=== PATIENT | male | born 1950 | race Two or more races ===

== ENCOUNTER → 2017-08-09 | Outpatient (CLI) | payer MEDICARE, OTHER ==
--- NOTE | 2017-08-09 10:08 | RADIOLOGY REPORT (SQ) ---
EXAM DESCRIPTION: CT ABD/PELVIS NO ORAL OR IV COMPLETED DATE/TIME: 08/09/2017 7:39 am REASON FOR STUDY: HEMATURIA (R31.9) R31.9 HEMATURIA, UNSPECIFIED COMPARISON: None. TECHNIQUE: CT scan of the abdomen and pelvis performed without intravenous or oral contrast. Images reviewed with lung, soft tissue, and bone windows. Reconstructed coronal and sagittal MPR images revi ewed. All images stored on PACS. All CT scanners at this facility use dose modulation, iterative reconstruction, and/or weight based d osing when appropriate to reduce radiation dose to as low as reasonably achievable (ALARA). [facility]: Dose Right [facility]: CareDose [facility]: Dose Right [facility]: Teradose 4D [facility]: [employer] RADIATION DOSE: Up-to-date CT equipment and radiation dose reduction techniques were employed. CTDIv ol: 14.8 mGy. DLP: 795 mGy-cm.mGy. LIMITATIONS: None. FINDINGS: On the right side, a 1.6 cm stone is present in the right renal pelvis, [address] its in density. Although there is no right hydronephrosis or hydroureter, there is inflammation at t he right renal pelvis fat, and intermittent right urinary outflow obstruction from this stone may be present. These changes are best shown on coronal images 59-68, and axial images 29-37. Elsewhere in the right kidney, a less than 2 mm calculus is present in the upper pole. No cysts or m asses. No right ureteral stones. LOWER CHEST: No significant findings. No nodules or infiltrates. NON-CONTRASTED LIVER, SPLEEN, ADRENALS: Evaluation limited by lack of IV contrast. No identified sign ificant masses. PANCREAS: No masses. No peripancreatic inflammatory changes. GALLBLADDER: No identified stones by CT criteria. No inflammatory changes to suggest cholecystitis. RIGHT KIDNEY AND URETER: As above LEFT KIDNEY AND URETER: No suspicious masses. 7 mm left lower pole hemorrhagic cyst. 4 mm left low er pole intrarenal nonobstructive stone. No hydronephrosis or hydroureter. AORTA AND RETROPERITONEUM: No aneurysm. No retroperitoneal masses or adenopathy. BOWEL AND PERITONEAL CAVITY: No obvious masses or inflammatory changes. No free fluid. Scattered col onic diverticuli without CT signs of acute diverticulitis. APPENDIX: Normal. PELVIS, BLADDER, AND ABDOMINAL WALL:No abnormal masses. No free fluid. Bladder normal. BONES: No significant findings. OTHER: No other significant finding. IMPRESSION: 1.6 cm right renal pelvis stone, with reactive or inflammatory stranding in the fat at t he right renal hilum. No right-sided hydronephrosis. COMMENT: Quality ID # [id number]: Final reports with documentation of one or more dose reduction techniques (e.g., Automated exposure control, adjustment of the mA and/or kV according to patient size, use of iterative reconstruction technique) TECHNICAL DOCUMENTATION: JOB ID: [id number] [employer]- All Rights Reserved
== END ==
LOC: RAD 07:00
PROVIDERS: ATTEND Family Medicine
DX: N20.0 Calculus of kidney (principal); R31.9 Hematuria, unspecified
CPT/HCPCS: 74176

== ENCOUNTER → 2017-10-15 | Outpatient (CLI) | payer MEDICARE, OTHER ==
--- NOTE | 2017-10-16 09:40 | RADIOLOGY REPORT (SQ) ---
EXAM DESCRIPTION: CT ABD/PELVIS NO ORAL OR IV COMPLETED DATE/TIME: 10/15/2017 3:44 pm REASON FOR STUDY: KIDNEY STONE N20.0 CALCULUS OF KIDNEY COMPARISON: 08/09/2017. TECHNIQUE: CT scan of the abdomen and pelvis performed without intravenous or oral contrast. Images reviewed with lung, soft tissue, and bone windows. Reconstructed coronal and sagittal MPR images revi ewed. All images stored on PACS. All CT scanners at this facility use dose modulation, iterative reconstruction, and/or weight based d osing when appropriate to reduce radiation dose to as low as reasonably achievable (ALARA). [facility]: Dose Right [facility]: CareDose [facility]: Dose Right [facility]: Teradose 4D [facility]: Smart [employer] RADIATION DOSE: Up-to-date CT equipment and radiation dose reduction techniques were employed. CTDIv ol: 13.2 mGy. DLP: 703 mGy-cm.mGy. LIMITATIONS: None. FINDINGS: LOWER CHEST: Small right hydropneumothorax. Potentially related to recent retroperitoneal instrumentation. NON-CONTRASTED LIVER, SPLEEN, ADRENALS: Evaluation limited by lack of IV contrast. No identified sign ificant masses. PANCREAS: No masses. No peripancreatic inflammatory changes. GALLBLADDER: No identified stones by CT criteria. No inflammatory changes to suggest cholecystitis. RIGHT KIDNEY AND URETER: Percutaneous nephrostomy in place. This skirts the medial aspect of the martín al parenchyma with direct entry into the dilated renal pelvis. Distal tip lies in the distal ureter. Moderate hydronephrosis with distension of the urinary pelvis, regional fat stranding. This is sli ghtly progressive compared to August. Large stone in the renal pelvis measures 1.2 cm with Hounsf [place] units greater than 1,100. At least 1 other tiny punctate upper pole calculus. No stones in the ureter, which is mildly dilated diffusely. LEFT KIDNEY AND URETER: Punctate nonobstructive nephrolithiasis. AORTA AND RETROPERITONEUM: No evidence of aortic aneurysm or retroperitoneal mass/ adenopathy. BOWEL AND PERITONEAL CAVITY: No obvious masses or inflammatory changes. No free fluid. APPENDIX: Normal. PELVIS, BLADDER, AND ABDOMINAL WALL:No abnormal masses. No free fluid. Bladder normal. BONES: No significant findings. OTHER: No other significant finding. IMPRESSION: 1. Large chronic stone in the right renal pelvis once again demonstrated. Instrumentat ion of the right kidney now in place. Slightly progressive hydronephrosis noted compared to prior. The right ureter is also diffusely dilated but without stones. 2. Nonobstructive left nephrolithiasi s. 3. Chest findings as above. There is a small hydropneumothorax. Follow-up chest radiographs to assess size and extent recommended. Findings discussed with Dr. Barrios on the morning of review, 10/16/2017. TECHNICAL DOCUMENTATION: JOB ID: [id number] Quality ID # [id number]: Final reports with documentation of one or more dose reduction techniques (e.g., Au tomated exposure control, adjustment of the mA and/or kV according to patient size, use of iterative reconstruction technique) 2010 [employer]- All Rights Reserved
== END ==
LOC: RAD 15:00
PROVIDERS: ATTEND Urology
DX: N20.0 Calculus of kidney (principal)
CPT/HCPCS: 74176

== ENCOUNTER → 2017-10-17 | Outpatient (CLI) | payer MEDICARE, OTHER ==
--- NOTE | 2017-10-17 10:46 | RADIOLOGY REPORT (SQ) ---
EXAM DESCRIPTION: CHEST PA/LAT COMPLETED DATE/TIME: 10/17/2017 10:35 am REASON FOR STUDY: PLEURAL EFFUSION (J90) COMPARISON: None. EXAM PARAMETERS: NUMBER OF VIEWS: two views TECHNIQUE: Digital Frontal and Lateral radiographic views of the chest acquired. RADIATION DOSE: NA LIMITATIONS: none FINDINGS: LUNGS AND PLEURA: No opacities, masses or pneumothorax. No pleural effusion. MEDIASTINUM AND HILAR STRUCTURES: No masses or contour abnormalities. HEART AND VASCULAR STRUCTURES: Heart size borderline. No failure. BONES: No acute findings. HARDWARE: None in the chest. OTHER: No other significant finding. IMPRESSION: Borderline cardiomegaly. No failure. No pleural effusion. TECHNICAL DOCUMENTATION: JOB ID: [id number] [employer]- All Rights Reserved
== END ==
LOC: RAD 09:57
PROVIDERS: ATTEND Urology
DX: J90 Pleural effusion, not elsewhere classified (principal)
CPT/HCPCS: 71020

== ENCOUNTER 2017-11-16 12:52 | Emergency (ER) | payer MEDICARE, OTHER ==
[2017-11-16 13:02] VITALS: BP 150/85
--- NOTE | 2017-11-16 13:26 | ER Document Report ---
ED General - General Chief Complaint: Other Stated Complaint: WOUND CHECK Time Seen by Provider: 11/16/17 13:16 Mode of Arrival: Ambulatory Notes: This 67-year-old male patient had a right nephrostomy tube placed possibly months ago or so. He then had a transurethral approach for an obstructing kidney stone. He reports the bag was removed from the stent just over 3 weeks ago. He has a follow-up appointment with his urologist in 2 days. He reports that the outer sheath of the catheter with the Luer-Constance tip fell off during the night. He brought that catheter with him. There is an inner catheter that remains percutaneous and sutured to the skin. The end of the catheter is unprotected and does not have any tip affixed to it. His urologist will be contacted to see if anything should be done other than a sterile dressing at this time. TRAVEL OUTSIDE OF THE [place] IN LAST 30 DAYS: No - Related Data Allergies/Adverse Reactions: No Known Allergies Allergy (Verified 11/16/17 12:55) Home Medications: Current Home Medications Clopidogrel Bisulfate [Clopidogrel] 75 mg PO DAILY 11/16/17 [History] Metoprolol Tartrate [Metoprolol Tartrate] 100 mg PO DAILY 11/16/17 [History] Telmisartan [Micardis] 20 mg PO DAILY 11/16/17 [History] Past Medical History - General Information source: Patient - Social History Smoking Status: Current Some Day Smoker Cigarette use (# per day): Yes Chew tobacco use (# tins/day): No Smoking Education Provided: No Frequency of alcohol use: None Drug Abuse: None Lives with: Spouse/Significant other Family History: Reviewed & Not Pertinent Patient has suicidal ideation: No Patient has homicidal ideation: No - Past Medical History Cardiac Medical History: Reports: Hx Hypertension Pulmonary Medical History: Reports: None EENT Medical History: Reports: None Neurological Medical History: Reports: None Endocrine Medical History: Reports: None Renal/ Medical History: Reports: Hx Kidney Stones GI Medical History: Reports: None Musculoskeltal Medical History: Reports None Skin Medical History: Reports None Psychiatric Medical History: Reports: None Past Surgical History: Reports: Hx Kidney (Renal Surgery) - Urostomy tube Review of Systems - Review of Systems Constitutional: No symptoms reported EENT: No symptoms reported Cardiovascular: No symptoms reported Respiratory: No symptoms reported Gastrointestinal: No symptoms reported Genitourinary: See HPI Musculoskeletal: No symptoms reported Skin: No symptoms reported Hematologic/Lymphatic: No symptoms reported Neurological/Psychological: No symptoms reported Physical Exam - Vital signs Vitals: Temp Pulse Resp BP Pulse Ox 97.9 F 87 20 150/85 H 100 11/16/17 13:01 11/16/17 13:01 11/16/17 13:01 11/16/17 13:01 11/16/17 13:01 Interpretation: Normal - General General appearance: Appears well, Alert In distress: None - HEENT Head: Normocephalic, Atraumatic Eyes: Normal Pupils: PERRL - Respiratory Respiratory status: No respiratory distress - Cardiovascular Rhythm: Regular - Abdominal Inspection: Normal - Back Back: Other - There is an orange colored nephrostomy tube exiting the right posterior flank which is sutured to the skin. The end of that tube is cut with no fitting. It appears this was an inner cannula to the blue nephrostomy tube the patient has with him in the plastic bag. - Extremities General upper extremity: Normal inspection General lower extremity: Normal inspection - Neurological Neuro grossly intact: Yes - Psychological Associated symptoms: Normal affect, Normal mood - Skin Skin Temperature: Warm Skin Moisture: Dry Skin Color: Normal Course - Vital Signs Vital signs: Temp Pulse Resp BP Pulse Ox 97.9 F 87 20 150/85 H 100 11/16/17 13:01 11/16/17 13:01 11/16/17 13:01 11/16/17 13:01 11/16/17 13:01 - Diagnostic Test Radiology reviewed: Image reviewed, Reports reviewed - The KUB shows a nephrostomy tube going into the renal pelvis and then down the ureter almost to the bladder on the right side - Consults Dr. Sinclair Time consulted: 13:50 Consulted provider: other - Place a sterile dressing over the tube. Get a KUB for tube placement. Have patient bring a CD to his office appointment with Dr. Barrios on Saturday. Discharge - Discharge Clinical Impression: Nephrostomy tube displaced Condition: Stable Disposition: HOME, SELF-CARE Additional Instructions: Keep the dressing on your back clean and intact. Take the CD of your x-ray today with you to your follow-up appointment with Dr. Barrios on Saturday. Call your urologist if any problems. RETURN TO THE EMERGENCY ROOM IF ANY NEW OR WORSENING SYMPTOMS.
--- NOTE | 2017-11-16 15:10 | RADIOLOGY REPORT (SQ) ---
EXAM DESCRIPTION: KUB/ABDOMEN (SINGLE VIEW) COMPLETED DATE/TIME: 11/16/2017 2:50 pm REASON FOR STUDY: right nephrostomy tube placement COMPARISON: CT abdomen 10/15/2017. NUMBER OF VIEWS: One view. TECHNIQUE: Supine radiographic image of the abdomen acquired. LIMITATIONS: None. FINDINGS: BOWEL GAS PATTERN: Normal bowel gas pattern. No dilated loops. CALCIFICATIONS: Known calcification measuring 1.6 cm in the right renal pelvis. SOFT TISSUES: No gross mass or suggestion of organomegaly. HARDWARE: There is a nephrostomy tube in place which traverses the collecting system and majority of the ureter. Tip terminates in the pelvis. CT shows this to lie in the distal ureter. The proximal portion appears to lie external to the patient over the right lower flank. BONES: No acute fracture. No worrisome bone lesions. OTHER: No other significant finding. IMPRESSION: Nephro ureterostomy tube in place on the right, position within the patient looks grossl y unchanged when correlated to CT from last month. Known large right renal pelvic stone. TECHNICAL DOCUMENTATION: JOB ID: [id number]- All Rights Reserved
== END 2017-11-16 15:11 | disposition home or self-care (01) ==
LOC: ER 12:52
DX: N99.528 Other complication of incontinent external stoma of urinary tract (principal); Y83.8 Other surgical procedures as the cause of abnormal reaction of the patient, or of later complication, without mention of misadventure at the time of the procedure; Y73.8 Miscellaneous gastroenterology and urology devices associated with adverse incidents, not elsewhere classified; Z87.442 Personal history of urinary calculi; F17.210 Nicotine dependence, cigarettes, uncomplicated; I10 Essential (primary) hypertension
CPT/HCPCS: 74000; 99283

== ENCOUNTER 2018-06-08 08:30 | Emergency (ER) | payer MEDICARE, OTHER ==
[2018-06-08 08:35] VITALS: BP 145/102
--- NOTE | 2018-06-08 08:51 | ER Document Report ---
ED General - General Chief Complaint: Foreign Body in Ear Stated Complaint: FOREIGN OBJECT IN RIGHT EAR/QTIP Time Seen by Provider: 06/08/18 08:51 Mode of Arrival: Ambulatory Information source: Patient TRAVEL OUTSIDE OF THE [place] IN LAST 30 DAYS: No - HPI Notes: 67-year-old male presents to the ED with complaints of foreign body to his right ear with a Q-tip that happened this morning. Denies any ringing ear, hearing loss, fevers or chills. Has not attempted to get Q-tip out of the ear. Denies any drainage from the ear. Denies any pain. Denies any other complaints at this time. - Related Data Allergies/Adverse Reactions: No Known Allergies Allergy (Verified 06/08/18 08:31) Past Medical History - General Information source: Patient - Social History Smoking Status: Unknown if Ever Smoked Family History: Reviewed & Not Pertinent - Past Medical History Cardiac Medical History: Reports: Hx Hypertension Renal/ Medical History: Reports: Hx Kidney Stones. Denies: Hx Peritoneal Dialysis Past Surgical History: Reports: Hx Kidney (Renal Surgery) - Urostomy tube Review of Systems - Review of Systems Constitutional: No symptoms reported EENT: See HPI Cardiovascular: No symptoms reported Respiratory: No symptoms reported Gastrointestinal: No symptoms reported Genitourinary: No symptoms reported Male Genitourinary: No symptoms reported Musculoskeletal: No symptoms reported Skin: No symptoms reported Hematologic/Lymphatic: No symptoms reported Neurological/Psychological: No symptoms reported Physical Exam - Vital signs Vitals: Temp Pulse Resp BP Pulse Ox 97.7 F 71 16 145/102 H 97 06/08/18 08:34 06/08/18 08:34 06/08/18 08:34 06/08/18 08:34 06/08/18 08:34 - Notes Notes: PHYSICAL EXAMINATION: GENERAL: Well-appearing, well-nourished and in no acute distress. HEAD: Atraumatic, normocephalic. EYES: Pupils equal round and reactive to light, extraocular movements intact, sclera anicteric, conjunctiva are normal. ENT: Nares patent, oropharynx clear without exudates. Moist mucous membranes. Right external canal with tip of Q-tip, no open wounds or drainage. Tympanic membrane appears intact. After ears were flushed, Q-tip came out, TM remains intact, no erythema or bulging. Scant erythema to the external canal and right. Left TM and EAC normal. NECK: Normal range of motion, supple without lymphadenopathy LUNGS: Breath sounds clear to auscultation bilaterally and equal. No wheezes rales or rhonchi. HEART: Regular rate and rhythm without murmurs ABDOMEN: Soft, nontender, nondistended abdomen. No guarding, no rebound. No masses appreciated. Musculoskeletal: Normal range of motion, no pitting or edema. No cyanosis. NEUROLOGICAL: Cranial nerves grossly intact. Normal speech, normal gait. Normal sensory, motor exams PSYCH: Normal mood, normal affect. SKIN: Warm, Dry, normal turgor, no rashes or lesions noted. Course - Re-evaluation Re-evalutation: 06/08/18 09:28 Healthy 67-year-old male is afebrile, vitals stable and in no distress presents for foreign body removal to right ear. Foreign body was removed after flushing. Will put place patient on antibiotic drops to prevent infection. Advised take ibuprofen and Tylenol as needed for pain. After performing a Medical Screening Examination, I estimate there is LOW risk for malignant otitis media, mastoiditis, MENINGITIS, or ACUTE CORONARY SYNDROME, thus I consider the discharge disposition reasonable. I have reevaluated this patient multiple times and no significant life threatening changes are noted. The patient and I have discussed the diagnosis and risks, and we agree with discharging home to follow-up on an outpatient basis with the understanding that symptoms and presentations can change. We also discussed returning to the Emergency Department immediately if new or worsening symptoms occur. We have discussed the symptoms which are most concerning (e.g., high fevers, confusion) that necessitate immediate return. - Vital Signs Vital signs: Temp Pulse Resp BP Pulse Ox 97.7 F 71 16 145/102 H 97 06/08/18 08:34 06/08/18 08:34 06/08/18 08:34 06/08/18 08:34 06/08/18 08:34 Discharge - Discharge Clinical Impression: Foreign body in ear Qualifiers: Encounter type: initial encounter Right otitis externa Qualifiers: Chronicity: acute Condition: Stable Disposition: HOME, SELF-CARE Instructions: Otitis Externa ([facility]), Use of Ear Drops ([facility]), Foreign Body ([facility]) Additional Instructions: Use eardrops as directed. Take otc antipyretics as needed for any pain or fever. Follow-up with your PCP as needed. Return if becomes lethargic, has persistent vomiting, facial swelling, worsening pain despite antibiotics, or any other symptoms that are concerning to you, return to ER immediately. Return immediately for any new or worsening symptoms. Follow up with primary care provider, call tomorrow to make followup appointment. Prescriptions: Ciprofloxacin HCl/Dexameth [Ciprodex Otic Suspension 7.5 ml Bottle] 4 drop OT BID #1 bottle Forms: Parent Work Note Referrals: HERNÁN TORRES MD [NO LOCAL MD] - Follow up as needed
== END 2018-06-08 09:25 | disposition home or self-care (01) ==
LOC: ER 08:30
DX: T16.1XXA Foreign body in right ear, initial encounter (principal); H60.91 Unspecified otitis externa, right ear; X58.XXXA Exposure to other specified factors, initial encounter; Y93.E8 Activity, other personal hygiene; I10 Essential (primary) hypertension; Z87.442 Personal history of urinary calculi
CPT/HCPCS: 99282

== ENCOUNTER 2018-08-30 00:33 | Emergency (ER) | payer MEDICARE, OTHER ==
[2018-08-30 00:49] VITALS: BP 151/97
--- NOTE | 2018-08-30 02:07 | RADIOLOGY REPORT (SQ) ---
EXAM DESCRIPTION: CT HEAD WITHOUT IV CONTRAST COMPLETED DATE/TME: 08/30/2018 01:37 CLINICAL HISTORY: 68 years Male, head trauma COMPARISON: None. TECHNIQUE: No contrast. Coronal and sagittal reformat. This exam was performed according to our departmental dose-optimization program, which includes automated exposure control, adjustment of the mA and/or kV according to patient size and/or use of iterative reconstruction technique. FINDINGS: No hemorrhage or infarct. No mass, mass effect, or midline shift. Moderate left frontal scalp swelling. Brain and extra-axial structures appear otherwise intact. IMPRESSION: Scalp swelling/injury. Else, no acute intracranial findings.
--- NOTE | 2018-08-30 02:08 | RADIOLOGY REPORT (SQ) ---
EXAM DESCRIPTION: CT MAXILLOFACIAL WITHOUT IV CONTRAST COMPLETED DATE/TME: 08/30/2018 01:37 CLINICAL HISTORY: 68 years Male, fall, trauma Comparison: None. Technique: No contrast. Coronal and sagittal reformat. This exam was performed according to our departmental dose-optimization program, which includes automated exposure control, adjustment of the mA and/or kV according to patient size and/or use of iterative reconstruction technique.[facility]: Dose Right [facility]: CareDose [facility]: Dose Right [facility]: Teradose 4D [facility]: [employer] LIMITATIONS: None Findings: Moderate left frontal scalp swelling. Facial bones including orbits, nasal bone, paranasal sinuses, and pterygoid plates appear otherwise intact. Unremarkable partially visualized inferior cranium, temporal bone, and upper neck. IMPRESSION: Moderate scalp swelling.
[2018-08-30] MEDS ORDERED: LIDOCAINE 1%/EPINEPHRINE INJ 20 ML VIAL INJ ONE (02:19)
[2018-08-30] MEDS ORDERED: DIPH/PERTUSS(ACELL)/TETANUS VAC/PF 0.5 ML SYR (>=10YO) IM ONE (03:04)
--- NOTE | 2018-08-30 03:07 | ER Document Report ---
ED General - General Chief Complaint: Nose Bleed Stated Complaint: FALL/NOSE BLEED Time Seen by Provider: 08/30/18 01:37 Notes: Patient is a 68-year-old male currently on Plavix and aspirin who presents after having a mechanical fall striking his head. The patient denies loss of consciousness, weakness, numbness, confusion or vomiting since that time. He notes that he initially had a small amount of bleeding from his left nostril which has now spontaneously stopped. He notes a dull, throbbing, constant pain to his left forehead. Nothing improves or worsens that pain. He states that there is a laceration to the affected area and that the bleeding is been controlled by direct pressure. No history of similar injuries in the past. He denies any additional injuries to any other area of his body. He has not contacted his primary care doctor regarding today's concerns. TRAVEL OUTSIDE OF THE [place] IN LAST 30 DAYS: No - Related Data Allergies/Adverse Reactions: No Known Allergies Allergy (Verified 06/08/18 08:31) Past Medical History - General Information source: Patient - Social History Smoking Status: Never Smoker Frequency of alcohol use: None Drug Abuse: None Lives with: Family Family History: Reviewed & Not Pertinent - Past Medical History Cardiac Medical History: Reports: Hx Hypertension Renal/ Medical History: Reports: Hx Kidney Stones. Denies: Hx Peritoneal Dialysis Past Surgical History: Reports: Hx Kidney (Renal Surgery) - Urostomy tube Review of Systems - Review of Systems Notes: Constitutional: Negative for fever. Eyes: Negative for visual changes. ENT: Negative for facial injury Cardiovascular: Negative for chest injury. Respiratory: Negative for shortness of breath. Gastrointestinal: Negative for abdominal injury. Genitourinary: Negative for genital injury Musculoskeletal: Negative for back injury. Skin: Positive for laceration/abrasions. Neurological: Positive for head injury. Physical Exam - Vital signs Vitals: Temp Pulse Resp BP Pulse Ox 97.6 F 98 22 H 151/97 H 96 08/30/18 00:47 08/30/18 00:47 08/30/18 00:47 08/30/18 00:47 08/30/18 00:47 Interpretation: Hypertensive Notes: PHYSICAL EXAMINATION: GENERAL: Well-appearing, no acute distress. HEAD: Atraumatic, normocephalic. EYES: Pupils equal round and reactive to light, extraocular movements intact, sclera anicteric, conjunctiva are normal. ENT: nares patent, no oral pharyngeal trauma. No hemotympanum, no Chicas's sign , no raccoon eyes. NECK: No midline cervical spine tenderness. Patient able to move their head to 45 bilaterally without any discomfort. LUNGS: Breath sounds clear to auscultation bilaterally and equal. No wheezes rales or rhonchi. HEART: Regular rate and rhythm without murmurs. CHEST WALL: No ecchymosis over the chest wall. ABDOMEN: Soft, nontender, normoactive bowel sounds. No guarding, no rebound. No abdominal bruising EXTREMITIES: Normal range of motion, no pitting or edema. No long bone deformities. BACK: No midline spinal tenderness, step-offs, or deformities. NEUROLOGICAL: Face symmetric. Tongue protrudes midline. Extraocular motions intact. Pupils are 2 mm and equally reactive. Normal speech, normal gait. 5 out of 5 strength in both the distal and proximal upper and lower extremities bilaterally. Sensation is grossly intact throughout. Finger to nose testing normal. Pronator drift normal. PSYCH: Normal mood, normal affect. SKIN: Warm, Dry, normal turgor, 3 cm laceration of the left forehead just above the level of the eyebrow Course - Re-evaluation Re-evalutation: 08/30/18 03:03 Patient presents presentation of head trauma in an otherwise well-appearing patient. No focal neurologic deficits on exam, no evidence of basilar skull fracture on exam without evidence of hemotympanum, raccoon eyes, or periauricular hematoma. No papilledema. GCS is 15. No loss of consciousness. No episodes of vomiting. Unfortunately, the patient is anticoagulated on Plavix and is above [address] of the head was therefore obtained and does not show any evidence of acute intracranial injury or skull fracture. CT of the face was also obtained given prominent swelling above the patient's left eye and this likewise was noted to be unremarkable. Patient has full extraocular motions of the left eye, no proptosis or evidence of entrapment. No additional injuries noted on exam or by history. Laceration was repaired without difficulty. Tetanus has been updated. At this time will discharge with return precautions and follow-up recommendations. Verbal discharge instructions given a the bedside and opportunity for questions given. Medication warnings reviewed. Patient is in agreement with this plan and has verbalized understanding of return precautions and the need for primary care follow-up in the next 24-72 hours. - Vital Signs Vital signs: Temp Pulse Resp BP Pulse Ox 97.6 F 98 22 H 151/97 H 96 08/30/18 00:47 08/30/18 00:47 08/30/18 00:47 08/30/18 00:47 08/30/18 00:47 - Diagnostic Test Radiology reviewed: Image reviewed, Reports reviewed Radiology results interpreted by me: 08/30/18 03:05 CT head: No acute intracranial bleed or mass Procedures - Laceration/Wound Repair Left forehead Wound length (cm): 3 Wound's Depth, Shape: Superficial Laceration pre-procedure: Sterile PPE donned Anesthetic type: 1% Lidocaine w/epi Volume Anesthetic (mLs): 2 Wound explored: Clean Irrigated w/ Saline (mLs): 500 Wound Debrided: Minimal Wound Repaired With: Sutures Suture Size/Type: Prolene Number of Sutures: 5 Layer Closure?: No Post-procedure wound care: Sterile dressing applied Post-procedure NV exam normal: Yes Discharge - Discharge Clinical Impression: Head trauma Qualifiers: Encounter type: initial encounter Qualified Code(s): S09.90XA - Unspecified injury of head, initial encounter Forehead laceration Qualifiers: Encounter type: initial encounter Qualified Code(s): S01.81XA - Laceration without foreign body of other part of head, initial encounter Fall Qualifiers: Encounter type: initial encounter Qualified Code(s): W19.XXXA - Unspecified fall, initial encounter Condition: Good Disposition: HOME, SELF-CARE Additional Instructions: You have likely sustained a contusion (bruise) to your head. The CT scan of your head and face do not show any acute injuries other than bruising to your forehead. Symptoms to expect from a concussion include nausea, mild to moderate headache, difficulty concentrating or sleeping, and mild lightheadedness. These symptoms should improve over the next few days to weeks. Return to the emergency department or follow-up with your primary care doctor if your symptoms are not improving over this time. Signs of a more serious head injury include vomiting, severe headache, excessive sleepiness or confusion, and weakness or numbness in your face, arms or legs. Return immediately to the Emergency Department if you experience any of these more concerning symptoms. Rest, avoid strenuous physical or mental activity, and avoid activities that could potentially result in another head injury until all your symptoms from this head injury are completely resolved for at least 2-3 weeks. If you participate in sports, get cleared by your doctor or corporate sales trainer before returning to play. You may take ibuprofen or acetaminophen over the counter according to label instructions for mild headache or scalp soreness. Please return to your primary doctor, the ED, or an urgent care in 7 days for suture removal. Return immediately if you develop spreading redness around the wound, pus from the wound, worsening pain, or a fever of >100.4. Keep the area clean and dry. Wash gently with soap and water twice daily and cover with antibiotic ointment. Referrals: KELI COLEMAN MD [Primary Care Provider] - Follow up as needed
== END 2018-08-30 03:22 | disposition home or self-care (01) ==
LOC: ER 00:33
DX: S01.81XA Laceration without foreign body of other part of head, initial encounter (principal); R51 Headache; W01.198A Fall on same level from slipping, tripping and stumbling with subsequent striking against other object, initial encounter; Z79.02 Long term (current) use of antithrombotics/antiplatelets; Z79.82 Long term (current) use of aspirin; I10 Essential (primary) hypertension; Z23 Encounter for immunization
CPT/HCPCS: 70450; 70486; 90471; 90715; 99284

== ENCOUNTER → 2018-11-10 | Outpatient (CLI) | payer MEDICARE, OTHER ==
--- NOTE | 2018-11-11 11:50 | XCELERA REPORT ---
[address] [facility] [address] Lower Extremity Venous Evaluation Procedure: Color flow and duplex imaging bilaterally of the veins of the lower extremities as well as the Common Femoral veins. Right Sided Venous Evaluation Normal vessel filling wall to wall, compression and augmentation as well as Colour flow down to the infrageniculate veins. Left Sided Venous Evaluation Normal vessel filling wall to wall, compression and augmentation as well as Colour flow down to the infrageniculate veins. Interpretation Summary No duplex evidence of DVT or obstruction in the bilateral lower extremities. Name: ALINA HAUSER Age: 68 yrs Gender: Male : 1950 Patient Status: Outpatient Patient Location: Study Date: 11/10/2018 09:37 AM Reason For Study: BLE PAIN Ordering Physician: DARIUS THAKUR Performed By: Abiel Kaur : DARIUS THAKUR > Christian Hendricks
== END ==
LOC: SP 09:18
PROVIDERS: ATTEND Physician Assistant
DX: M79.662 Pain in left lower leg (principal); M79.661 Pain in right lower leg; M79.2 Neuralgia and neuritis, unspecified
CPT/HCPCS: 93970